=== PATIENT | male | born 1950 | race Caucasian/White ===

== ENCOUNTER → 2022-10-22 | Outpatient (REF) | payer OTHER, BC | LOC: M SMT 13:24 | PROVIDERS: ATTEND Physician Assistant | DX: R82.89 Other abnormal findings on cytological and histological examination of urine (principal) ==

== ENCOUNTER 2022-12-05 07:30 | Inpatient (IN) | payer OTHER ==
[~2022-12-05] VITALS: Ht 167.6 cm; Wt 79.8 kg
[~2022-12-05 07:30] MED LIST: ACET-897 PO; ALEN70TA87 PO; ALFU10TA3 PO; BENA20TA PO; CARD240C5 PO; COLA100C5 PO; ECOT81TA5 PO; FERR325T3 PO; FLUT1INH3 INH; FURO20TA2 PO; LOPR1TAB7 PO; MORP-69 PO; NEUR600T PO; PANT40TA29 PO; SIMV40TA20 PO; VENTAER INH; VITA100093 PO; XELJ5TAB PO; ceFAZolin SOD 2 GM in IV 1 EA IV ONE
[2022-12-05] MEDS ORDERED: LIDOCAINE 2% 100MG/5ML SDV (FOR ANES.) As Ordered ONE (09:12)
[2022-12-05] MEDS ORDERED: propofoL 200 MG/20 ML VIAL As Ordered ONE (09:12)
[2022-12-05] MEDS ORDERED: ROCURONIUM BROMIDE 50MG/5ML VIAL As Ordered ONE ×2 (09:12→13:43)
[2022-12-05] MEDS ORDERED: fentaNYL 250 MCG/5 ML INJECTION As Ordered ONE (09:13)
[2022-12-05] MEDS ORDERED: MIDAZOLAM INJ 2MG/2ML VIAL As Ordered ONE (09:13)
[2022-12-05] MEDS ORDERED: LR 1,000 ML IV SCH (11:00)
[2022-12-05] MEDS ORDERED: FLUT1BLS5 INH (11:20)
[2022-12-05] MEDS ORDERED: PRED10TA2 PO (11:20)
[2022-12-05] MEDS ORDERED: HOME MED LIST COMPLETE! XX SCH (11:20)
[2022-12-05] MEDS ORDERED: SIMV10TA21 PO (11:20)
[2022-12-05] MEDS ORDERED: BUPIVACAINE HCL 0.25% 30ML VIAL As Ordered ONE (12:33)
[2022-12-05] MEDS ORDERED: LIDOCAINE 1% SDV 30ML VIAL As Ordered ONE (12:33)
[2022-12-05] MEDS ORDERED: ACETAMINOPHEN TAB 650MG DOSE (2X325MG) PO PRN (13:00)
[2022-12-05] MEDS ORDERED: ONDANSETRON 4MG 2ML VIAL IV PRN ×2 (13:00→17:10)
[2022-12-05] MEDS ORDERED: ALBUTEROL 90 MCG/ACT 8GM HFA INHALER INH PRN (13:00)
[2022-12-05] MEDS ORDERED: LACRILUBE (AKWA TEARS) OPHTH OINT 3.5GM As Ordered ONE (13:15)
[2022-12-05] MEDS ORDERED: ACETAMINOPHEN 1000MG 100ML IV BAG As Ordered ONE (13:34)
[2022-12-05] MEDS ORDERED: DESFLURANE 240 ML INHALANT As Ordered ONE (13:50)
[2022-12-05] MEDS ORDERED: HYDROmorphone HCL 2MG/ML 1ML VIAL As Ordered ONE (15:49)
[2022-12-05] MEDS ORDERED: KETOROLAC 60MG 2ML VIAL As Ordered ONE (16:48)
[2022-12-05] MEDS ORDERED: ONDANSETRON 4MG 2ML VIAL As Ordered ONE (16:48)
[2022-12-05] MEDS ORDERED: SUGAMMADEX SODIUM 500 MG/5 ML VIAL (BRIDION) As Ordered ONE (16:52)
[2022-12-05] MEDS ORDERED: METOCLOPRAMIDE INJ 10MG/2ML VIAL IV PRN (17:10)
[2022-12-05] MEDS ORDERED: oxyCODONE 5MG TAB PO PRN (17:10)
[2022-12-05] MEDS ORDERED: fentaNYL 100 MCG/2 ML INJECTION IV PRN (17:10)
[2022-12-05] MEDS ORDERED: HYDROMORPHONE HCL 0.5 MG/ 0.5 ML SYRINGE IV PRN (17:10)
[2022-12-05 18:05] LABS: HEMATOCRIT 34.6 % (42.0-52.0); HEMOGLOBIN 10.8 g/dl (13.5-17.5); MEAN CORPUSCULAR HEMOGLOBIN 27.5 pg (27.0-33.0); MEAN CORPUSCULAR HGB CONC 31.2 g/dl (32.0-36.5); PLATELET COUNT, AUTOMATED 132 10^3/uL (150-450); RED BLOOD COUNT 3.93 10^6/uL (4.30-6.10); WHITE BLOOD COUNT 7.8 10^3/uL (4.0-10.0)
[2022-12-05] MEDS: NS 1,000 ML IV SCH (18:16)
[2022-12-05 18:26] LABS: BLOOD UREA NITROGEN 15 MG/DL (9-23); CARBON DIOXIDE LEVEL 26 MMOL/L (20-31); CHLORIDE LEVEL 106 MMOL/L (98-107); CREATININE FOR GFR 1.16 MG/DL (0.70-1.30); GLOMERULAR FILTRATION RATE > 60.0 (>42); GLUCOSE, FASTING 125 MG/DL (74-106); POTASSIUM SERUM 3.7 MMOL/L (3.5-5.1); SODIUM LEVEL 141 MMOL/L (136-145)
[2022-12-05 18:33] VITALS: BP 139/83
[2022-12-05] MEDS: PERCOCET 5MG/325MG TAB PO PRN (19:11)
[2022-12-05 20:26] VITALS: BP 133/93
[2022-12-05] MEDS ORDERED: ENTER DRUG NAME HERE (PATIENT'S OWN MED) INH SCH (21:00)
[2022-12-05] MEDS: DOCUSATE SODIUM 100MG CAPSULE PO SCH (21:09)
[2022-12-05] MEDS: HEPARIN SOD (PORCINE) 5000UNITS/ML 1ML VIAL/SYRINGE SC SCH (21:09)
[2022-12-05] MEDS: GABAPENTIN 300 MG CAP PO SCH (21:09)
[2022-12-05] MEDS: TAMSULOSIN 0.4 MG CAP PO SCH (21:09)
[2022-12-05] MEDS: ceFAZolin SOD 1 GM in D5W MINI-BAG PLUS 50 ML IV SCH (21:09)
[2022-12-05] MEDS: BENAZEPRIL 20 MG TAB PO SCH (21:10)
[2022-12-05] MEDS: METOPROLOL TARTRATE 100MG TAB PO SCH (21:10)
[2022-12-05] MEDS: SIMVASTATIN 10 MG TAB PO SCH (21:10)
[2022-12-05] MEDS: PANTOPRAZOLE 40MG TAB (PROTONIX) PO SCH (21:10)
[2022-12-05 22:11] VITALS: BP 128/90
[2022-12-06 03:01] VITALS: BP 135/92
[2022-12-06] MEDS: PERCOCET 5MG/325MG TAB PO PRN ×5 (03:10→22:00)
[2022-12-06] MEDS: ceFAZolin SOD 1 GM in D5W MINI-BAG PLUS 50 ML IV SCH (05:25)
[2022-12-06] MEDS: HEPARIN SOD (PORCINE) 5000UNITS/ML 1ML VIAL/SYRINGE SC SCH ×3 (05:25→21:51)
[2022-12-06 06:01] VITALS: BP 146/105
[2022-12-06 06:04] VITALS: BP 142/85
[2022-12-06 06:33] LABS: HEMATOCRIT 31.8 % (42.0-52.0); HEMOGLOBIN 9.9 g/dl (13.5-17.5); MEAN CORPUSCULAR HEMOGLOBIN 27.7 pg (27.0-33.0); MEAN CORPUSCULAR HGB CONC 31.1 g/dl (32.0-36.5); MEAN CORPUSCULAR VOLUME 88.8 fl (80.0-96.0); PLATELET COUNT, AUTOMATED 127 10^3/uL (150-450); RED BLOOD COUNT 3.58 10^6/uL (4.30-6.10); WHITE BLOOD COUNT 8.2 10^3/uL (4.0-10.0)
[2022-12-06 07:18] LABS: CALCIUM LEVEL 7.1 MG/DL (8.3-10.6); CREATININE FOR GFR 1.51 MG/DL (0.70-1.30); GLOMERULAR FILTRATION RATE 48.7 (>42); POTASSIUM SERUM 3.8 MMOL/L (3.5-5.1)
[2022-12-06] MEDS: FERROUS SULFATE 325MG TAB PO SCH (07:50)
[2022-12-06] MEDS: GABAPENTIN 300 MG CAP PO SCH ×2 (07:50→21:52)
[2022-12-06] MEDS: NS 1,000 ML IV SCH (07:51)
[2022-12-06] MEDS: BENAZEPRIL 20 MG TAB PO SCH ×2 (07:51→21:52)
[2022-12-06] MEDS: DOCUSATE SODIUM 100MG CAPSULE PO SCH ×2 (07:52→21:52)
[2022-12-06] MEDS: FUROSEMIDE 20 MG TAB PO SCH (07:53)
[2022-12-06] MEDS: METOPROLOL TARTRATE 100MG TAB PO SCH ×2 (07:55→21:52)
[2022-12-06 14:11] VITALS: BP 120/70
[2022-12-06] MEDS ORDERED: PERCOCET PO (21:31)
[2022-12-06 21:45] VITALS: BP 130/87
[2022-12-06] MEDS: PANTOPRAZOLE 40MG TAB (PROTONIX) PO SCH (21:52)
[2022-12-06] MEDS: TAMSULOSIN 0.4 MG CAP PO SCH (21:53)
[2022-12-06] MEDS: SIMVASTATIN 10 MG TAB PO SCH (21:53)
[2022-12-07 02:00] VITALS: BP 109/69
[2022-12-07] MEDS: HEPARIN SOD (PORCINE) 5000UNITS/ML 1ML VIAL/SYRINGE SC SCH (05:22)
[2022-12-07 06:00] VITALS: BP 131/76
[2022-12-07 06:09] LABS: HEMATOCRIT 30.8 % (42.0-52.0); HEMOGLOBIN 9.6 g/dl (13.5-17.5); MEAN CORPUSCULAR HEMOGLOBIN 27.5 pg (27.0-33.0); MEAN CORPUSCULAR HGB CONC 31.2 g/dl (32.0-36.5); MEAN CORPUSCULAR VOLUME 88.3 fl (80.0-96.0); PLATELET COUNT, AUTOMATED 119 10^3/uL (150-450); RED BLOOD COUNT 3.49 10^6/uL (4.30-6.10); WHITE BLOOD COUNT 5.8 10^3/uL (4.0-10.0)
[2022-12-07 06:36] LABS: CALCIUM LEVEL 6.9 MG/DL (8.3-10.6); CREATININE FOR GFR 1.91 MG/DL (0.70-1.30); GLOMERULAR FILTRATION RATE 37.2 (>42); POTASSIUM SERUM 3.5 MMOL/L (3.5-5.1)
[2022-12-07 07:29] VITALS: BP 131/76
[2022-12-07] MEDS: FERROUS SULFATE 325MG TAB PO SCH (07:29)
[2022-12-07] MEDS: GABAPENTIN 300 MG CAP PO SCH (07:29)
[2022-12-07] MEDS: METOPROLOL TARTRATE 100MG TAB PO SCH (07:29)
[2022-12-07] MEDS: DOCUSATE SODIUM 100MG CAPSULE PO SCH (07:29)
[2022-12-07] MEDS: PERCOCET 5MG/325MG TAB PO PRN ×2 (07:30→09:59)
[2022-12-07] MEDS: FUROSEMIDE 20 MG TAB PO SCH (07:31)
== END 2022-12-07 10:05 | disposition home or self-care (01) | DRG 657 ==
LOC: M OR 09:50 → M MS5PR 18:15
PROVIDERS: ADMIT Urology; ATTEND Urology
PROC: 8E0W4CZ Robotic Assisted Procedure of Trunk Region, Percutaneous Endoscopic Approach (ICD-10-PCS; 2022-12-05)
PROC: 0TT14ZZ Resection of Left Kidney, Percutaneous Endoscopic Approach (ICD-10-PCS; principal; 2022-12-05 12:05)
DX: C64.2 Malignant neoplasm of left kidney, except renal pelvis (principal); I48.11 Longstanding persistent atrial fibrillation; I73.9 Peripheral vascular disease, unspecified; I36.1 Nonrheumatic tricuspid (valve) insufficiency; I27.20 Pulmonary hypertension, unspecified; I10 Essential (primary) hypertension; D50.9 Iron deficiency anemia, unspecified; Z87.891 Personal history of nicotine dependence; Z79.899 Other long term (current) drug therapy; Z88.8 Allergy status to other drugs, medicaments and biological substances